=== PATIENT | female | born 1990 | race Caucasian/White ===

== ENCOUNTER 2017-02-11 08:47 | Day surgery (SDC) | payer MEDICAID ==
[~2017-02-11] VITALS: Ht 152.4 cm; Wt 63.5 kg
[~2017-02-11 08:47] MED LIST: ATARAX 25 MG TA25 MG; CLARITIN 10 MG10 MG PO; DEMEROL50 MG PO; IBUPROFEN600 MG PO; OMEPRAZOLE20 M1 PO; PRENATAL COMPLE1 TAB PO; PROVENTIL HFA6.7 GM INH; XANAX0.5 MG PO
--- NOTE | 2017-02-11 09:43 | NUR ---
0940-PT C/O NAUSEA DR GARCIAS NOTIFIED AND NEW ORDER RECEIVED FOR ZOFRAN 4MG ODT TO BE GIVEN NOW. READ BACK AND VERIFIED
[2017-02-11 10:17] VITALS: BP 109/65; Ht 152.4 cm; Wt 63.5 kg
[2017-02-11 10:20] LABS: HEMATOCRIT 35.9 % (36.0-48.0); HEMOGLOBIN 11.4 g/dL (12-16); MCH 26.5 pg (26.0-34.0); MCHC 31.8 g/dL (31.0-37.0); MCV 83.3 fL (80.0-100.0); MEAN PLATELET VOLUME 10.1 fL (7.4-10.4); RBC 4.31 10x6/uL (4.00-5.40); RDW 14.4 % (11.5-14.5); WBC 4.8 10x3/uL (4.8-10.8)
--- NOTE | 2017-02-11 13:28 | NUR ---
HELEN LUNCH RELIEF FOR LUIS FROM 0224 UNTIL [id number]
--- NOTE | 2017-02-11 16:32 | NUR ---
1600 IV DC IWITH CATHER TIP INTACT VOIDED BLUISH COLOR URINE NOTED
--- NOTE | 2017-02-18 09:40 | HP ---
PATIENT: SYBIL LANZA MEDICAL RECORD: [id number] ACCOUNT: [id number] LOCATION:[facility] : 92 ADMISSION DATE: 02/11/17 HISTORY AND PHYSICAL EXAMINATION HISTORY OF PRESENT ILLNESS: The patient has recurrent umbilical hernia. She has undergone a prior open repair with mesh by me. I saw her in the office. Her history and physical examination is unchanged from when she saw me in the office with the exception that the hernia is somewhat larger than it was when she was in the office and plan for a laparoscopic repair with mesh. The risks, possible complications, and alternatives to the procedure were explained to the patient. She elects to proceed. TRANSINT:[id number] Voice Confirmation ID: [id number] DOCUMENT ID: [id number] MELLISA ANGULO MD at 0940 CC: [id number] DICTATION DATE: 02/11/17 1227 MICROBIOLOGY TECHNICIAN: 02/11/17 1302 [facility] 02/11/17 [id number] [place] [address]
--- NOTE | 2017-02-18 09:40 | OP ---
PATIENT NAME: SYBIL LANZA MEDICAL RECORD: [id number] :89 LOCATION:D.OPS ADMISSION DATE: SURGEON: ALDO ANGULO MD DATE OF OPERATION: 02/11/2017 PREOPERATIVE DIAGNOSIS: Recurrent umbilical hernia. POSTOPERATIVE DIAGNOSIS: Recurrent incarcerated umbilical hernia. PROCEDURE: Laparoscopic recurrent incarcerated umbilical hernia repair with mesh utilizing the Ventralight ST mesh with the Echo PS positioning system. This was an intraperitoneal placement of the mesh. SURGEON: Aldo Angulo MD. SALES AND CATERING COORDINATOR: None. BLOOD LOSS: Minimal. ANESTHESIA: General. COMPLICATIONS: None. The risks, possible complications and alternatives to the procedure were explained to the patient. She elects to proceed. OPERATIVE COURSE: The patient was conveyed to the operating room electively on 02/11/2017. General anesthesia was induced by the anesthesia staff. The abdomen was sterilely prepped and draped. A transverse incision was accomplished in the left upper quadrant. A Veress needle was inserted through the incision into the peritoneal cavity. CO2 insufflation was begun. Once a sufficient pneumoperitoneum had been achieved, a 12-mm trocar was inserted. Under direct internal vision utilizing a television camera, a 5-mm trocar was inserted in the right side of the abdomen and another in the left side of the abdomen. During insertion of the Veress needle and all trocars, there appeared to have been no injury to the bowels, any intraperitoneal or retroperitoneal structures. There were some adhesions to the anterior abdomen and these were taken down with use the Harmonic scalpel. I took down the falciform ligament with the Harmonic scalpel. I took down the preperitoneal fat associated with the anterior portion of the triangular ligament of the liver with the Harmonic scalpel. I cleaned the tissue around the hernia defect of preperitoneal fat with the Harmonic scalpel. I then inverted the hernia by compressing it externally and was able to reduce the incarcerated contents, which included only preperitoneal fat. A vesicular flap was created. Intravenous methylene blue was given. There was no spillage of methylene blue and therefore, no evidence of a bladder injury during this procedure. There was no bleeding. I rolled up a 4 inch x [address] mesh. It was advanced down through the 12-mm trocar and then unrolled. Through an incision superior to the umbilicus, I advanced a laparoscopic suture passer. I grasped blue tail of the inflation device and brought it out through the anterior abdominal wall. I then shortened the inflation device. I attached to the inflator and inflated the positioning device and positioned the mesh in the OPERATIVE REPORT [id number] SYBIL LANZA proper orientation with the long axis in the cephalad caudad dimension in the short axis and the lateral dimension. I utilized the several tacking device including SecureStrap Tacker and the SorbaFix tacks circumferentially to perform the herniorrhaphy. There was no bleeding. The positioning system was then removed in its entirety. I ensured that the entire positioning system had been removed. There was no evidence of recurrent or persistent hernia. The muscle at the left upper quadrant trocar site was closed with interrupted 0 Vicryl sutures. The skin at all the operative sites was closed with interrupted intracuticular 3-0 and 4-0 Vicryl sutures. Benzoin and Steri-Strips were applied. The patient was then extubated and conveyed to post-anesthesia care unit where she was in stable condition. She will be dismissed home on Demerol for pain. I will see her in the office in 2-3 weeks. TRANSINT:[id number] Voice Confirmation ID: [id number] DOCUMENT ID: [id number] ALDO ANGULO MD at 0940 CC: MARVIN CUTLER DO [id number] DICTATION DATE: 02/11/17 1440 CARPENTER PACKING: 02/11/17 1542 [facility] 02/11/17 [facility] [address] [place] [address]
== END 2017-02-11 16:15 | disposition home or self-care (01) ==
LOC: D.OPS 08:47 → D.PAN 09:45 → D.OPS 16:15
PROVIDERS: Anesthesiology
DX: K42.0 Umbilical hernia with obstruction, without gangrene (principal)

== ENCOUNTER → 2019-02-12 12:43 | Outpatient (CLI) | payer MEDICAID ==
[2017-02-11 10:17] VITALS: BMI 27.3
== END | disposition home or self-care (01) ==
LOC: D.CT 12:43
PROVIDERS: ATTEND Surgery
DX: Z98.890 Other specified postprocedural states (principal)